=== PATIENT | male | born 1955 | race Caucasian/White ===

== ENCOUNTER 2023-08-03 09:45 | Day surgery (SDC) | payer OTHER, SELFPAY ==
[2023-08-03 10:07] VITALS: BMI 27.2
[2023-08-03 10:13] VITALS: BP 123/66
[2023-08-03 12:17] VITALS: BP 133/69
--- NOTE | 2023-08-03 12:20 | ITS.CL.IMPLP ---
Graphics Software Engineer - Implant Loop
Implant Loop
Procedure Report:
LINQ IMPLANTED MONITOR REMOVAL
Date of Procedure: 08/03/23
Primary Care Provider: Dr Lindsey Holt
PROCEDURES:
1. Removal of implanted loop recorder
INDICATION FOR PROCEDURE:
1. Loop Recorder at end of battery longevity
After informed consent was obtained,'time out' was called and confirmed, the patient was prepped and draped in a sterile fashion.
SEDATION: Local anesthesia only
Lidocaine with epi was used for local anesthesia. An incision was made along the prior incision and the Linq monitor was carefully dissected from the pocket. The pocket was liberally irrigated with antibiotic solution. The pocket was closed in
the typical fashion.
COMPLICATIONS:
None
CONCLUSIONS:
1. Removal of implanted loop recorder.
RECOMMENDATIONS:
In-Office wound check in 7-14 days.
Copy to: 08/03/23
[2023-08-03 12:32] VITALS: BP 120/66
[2023-08-03 12:48] VITALS: BP 127/71
[2023-08-03 12:54] VITALS: BP 120/68
== END 2023-08-03 13:05 | disposition home or self-care (01) ==
LOC: CATH 09:45
PROVIDERS: ATTENDING PHYSICIAN Internal Medicine Cardiovascular Disease; FAMILY PHYSICIAN Family Medicine
DX: Z09 Encounter for follow-up examination after completed treatment for conditions other than malignant neoplasm (principal); I48.0 Paroxysmal atrial fibrillation; R55 Syncope and collapse
CPT/HCPCS: 33286

== ENCOUNTER 2025-07-10 23:32 | Inpatient (IN) | payer MEDICARE, OTHER, SELFPAY ==
[2025-07-10 18:05] VITALS: BP 169/103
[2025-07-10] MEDS: DUONEB 3 ML INH ×2 (18:07→21:05)
[2025-07-10 18:46] LABS: Hematocrit 46.3 % (39.0-52.0); Hemoglobin 15.6 g/dL (13.0-18.0); Mean Corp Hgb Conc. 33.7 g/dL (33.0-37.0); Mean Corpuscular Volume 89.9 fL (80.0-94.0); Nucleated Red Blood Cells % 0 % (-); Platelet Count 171 10^3/uL (130-400); Red Cell Dist. Width 12.6 % (11.5-14.5)
[2025-07-10 19:01] LABS: COVID-19 Antigen Negative (Negative)
[2025-07-10 19:04] LABS: ALT (SGPT) 18 U/L (0-50); AST (SGOT) 24 U/L (17-59); Albumin 4.2 g/dl (3.5-5.0); Alkaline Phosphatase 57 U/L (38-126); Blood Urea Nitrogen 17 mg/dl (9-20); Calcium 8.6 mg/dl (8.4-10.2); Carbon Dioxide 24 mmol/L (22-30); Chloride 102 mmol/L (98-107); Glucose 127 mg/dl (70-99); Potassium 3.8 mmol/L (3.5-5.1); Sodium 134 mmol/L (135-145); Total Protein 6.6 g/dl (6.3-8.2); eGFR > 60.00
--- NOTE | 2025-07-10 21:02 | ED.GENMED ---
History of Present Illness
<Eliazar Paulson PA-C - Last Filed: 07/10/25 22:41>
General
Chief Complaint: Breathing Problem
Source: patient
Time Seen by Provider: 07/10/25 20:40
History of Present Illness
History of Present Illness:
70-year-old male with history of asthma and cardiac arrest secondary to respiratory arrest presents with cough and shortness of breath with trouble breathing over the past 2 days. No fever. He tried to Symbicort at home without relief. No
vomiting. He denies chest pain. No other complaints at this time
Past History
<Eliazar Paulson PA-C - Last Filed: 07/10/25 22:41>
Past History
ED Past Medical History: PA
Phy Exam
<Eliazar Paulson PA-C - Last Filed: 07/10/25 22:41>
Physical Exam
Physical Exam:
General: Well-appearing male with slight increased work of breathing HEENT: Normal cephalic atraumatic neck is supple no trismus or drooling no stridor
Heart: Irregular and occasionally tachycardic
Lungs: Wheeze on the right
Extremities no cyanosis or edema
Skin warm no rash
Scores
<Eliazar Paulson PA-C - Last Filed: 07/10/25 22:41>
Heart Failure Risk
Heart Failure Risk Score: Not Applicable
Sepsis
<Eliazar Paulson PA-C - Last Filed: 07/10/25 22:41>
Sepsis Screening
Sepsis Assessment: Sepsis Ruled Out
Sepsis Screen
Sepsis Screen: Sepsis Ruled Out
Date: 07/10/25
Time: 22:41
Course
<Eliazar Paulson PA-C - Last Filed: 07/10/25 22:41>
Orders/Labs/Results
Orders:
Orders
07/10/25 18:03
Ipratropium/Albuterol Sulfate [Duoneb] 3 ml .ROUTE .STK-MED ONE
07/10/25 18:06
Ipratropium/Albuterol Sulfate [Duoneb] 3 ml INH R NOW ONE
07/10/25 18:13
CR Chest - 2 Views Urgent
Comment:
Reason For Exam: respiratory distress
07/10/25 18:33
COVID-19 Antigen Urgent
Source: Nasal Swab
Complete Blood Count/With Diff Urgent
Comprehensive Metabolic Panel Urgent
Influenza A+B Rapid Molecular Urgent
JUDITH Source: Nasal Swab
Specimen Description:
07/10/25 20:55
Electrocardiogram (*1) Urgent
Reason for Study: Shortness of Breath
Cardiac Monitoring- Treatment ONCE
EKG- Treatment ONCE
Ipratropium/Albuterol Sulfate [Duoneb] 3 ml INH R NOW STA
07/10/25 22:05
Apixaban [Eliquis] 5 mg PO NOW STA
Dexamethasone Sod Phosphate [Decadron] 10 mg IV NOW STA
07/10/25 22:22
CefTRIAXone [Rocephin] 1,000 mg IV NOW STA
07/10/25 22:30
Blood Culture Q30M
JUDITH Source: Blood/Venous
Specimen Description:
07/10/25 23:00
Blood Culture Q30M
JUDITH Source: Blood/Venous
Specimen Description:
Abnormal Lab Results
07/10/25
18:33
Absolute Lymphs (auto) 1.0 L 10^3/uL
(1.2-3.4)
Lymphocytes % 14.6 L %
(20.5-51.1)
Eosinophils % 8.1 H %
(0-6)
Sodium 134 L mmol/L
(135-145)
Glucose 127 H mg/dl
(70-99)
07/10/25 18:33
07/10/25 18:33
Vital Signs
Initial and Last Documented VS:
Initial Vital Signs
Pulse Resp BP Pulse Ox
133 28 169/103 87
07/10/25 18:05 07/10/25 18:05 07/10/25 18:05 07/10/25 18:05
Last Documented Vital Signs
Temp Pulse Resp BP Pulse Ox
98.8 F 133 28 169/103 87
07/10/25 18:15 07/10/25 18:05 07/10/25 18:05 07/10/25 18:05 07/10/25 22:25
<Marcelino Teixeira, DO - Last Filed: 07/10/25 22:25>
Orders/Labs/Results
Orders:
Orders
07/10/25 18:03
Ipratropium/Albuterol Sulfate [Duoneb] 3 ml .ROUTE .STK-MED ONE
07/10/25 18:06
Ipratropium/Albuterol Sulfate [Duoneb] 3 ml INH R NOW ONE
07/10/25 18:13
CR Chest - 2 Views Urgent
Comment:
Reason For Exam: respiratory distress
07/10/25 18:33
COVID-19 Antigen Urgent
Source: Nasal Swab
Complete Blood Count/With Diff Urgent
Comprehensive Metabolic Panel Urgent
Influenza A+B Rapid Molecular Urgent
JUDITH Source: Nasal Swab
Specimen Description:
07/10/25 20:55
Electrocardiogram (*1) Urgent
Reason for Study: Shortness of Breath
Cardiac Monitoring- Treatment ONCE
EKG- Treatment ONCE
Ipratropium/Albuterol Sulfate [Duoneb] 3 ml INH R NOW STA
07/10/25 22:05
Apixaban [Eliquis] 5 mg PO NOW STA
Dexamethasone Sod Phosphate [Decadron] 10 mg IV NOW STA
07/10/25 22:22
CefTRIAXone [Rocephin] 1,000 mg IV NOW STA
07/10/25 22:30
Blood Culture Q30M
JUDITH Source: Blood/Venous
Specimen Description:
07/10/25 23:00
Blood Culture Q30M
JUDITH Source: Blood/Venous
Specimen Description:
Abnormal Lab Results
07/10/25
18:33
Absolute Lymphs (auto) 1.0 L 10^3/uL
(1.2-3.4)
Lymphocytes % 14.6 L %
(20.5-51.1)
Eosinophils % 8.1 H %
(0-6)
Sodium 134 L mmol/L
(135-145)
Glucose 127 H mg/dl
(70-99)
07/10/25 18:33
07/10/25 18:33
Vital Signs
Initial and Last Documented VS:
Initial Vital Signs
Pulse Resp BP Pulse Ox
133 28 169/103 87
07/10/25 18:05 07/10/25 18:05 07/10/25 18:05 07/10/25 18:05
Last Documented Vital Signs
Temp Pulse Resp BP Pulse Ox
98.8 F 133 28 169/103 87
07/10/25 18:15 07/10/25 18:05 07/10/25 18:05 07/10/25 18:05 07/10/25 22:25
Jesusitalt;Eliazar Paulson PA-C - Last Filed: 07/10/25 22:41>
MDM/Problems Addressed
Differential Diagnosis Includes:
Patient here with difficulty breathing history of asthma and cardiac arrest secondary to respiratory arrest. Consider asthma exacerbation versus bronchitis versus pneumonia versus COVID or flu or PE
He received a DuoNeb in triage and is feeling better. Still with slight increased work of breathing. Will try another DuoNeb. Chest x-ray pending test for COVID and flu
<Eliazar Paulson PA-C - Last Filed: 07/10/25 22:41>
*Pulse Oximetry
SaO2: 97
Oxygen Mode of Delivery: Room air
<Marcelino Teixeira DO - Last Filed: 07/10/25 22:25>
*Radiology
Radiology exam reviewed: radiology read reviewed
*Pulse Oximetry
SaO2: 87
Patient hypoxic: yes
*Carton Forming Machine Tender Interpretation
Rate: normal
Interpretation: normal
Heart Rate: 78
Rhythm: sinus
*Critical Care Note
Total Time (30-74mins, 75-104mins- exclusive of procedures): 20
<Eliazar Paulson PA-C - Last Filed: 07/10/25 22:41>
Update Note
Update Note:
Further questioning, patient states he travels quite frequently by plane. EKG formally reviewed and demonstrates rapid atrial fibrillation heart rate in the 150s. PE study ordered.
Upon further questioning, the patient has an anaphylactic reaction to IV dye. Risks and benefits of the CT PE study were discussed. At this point given significant reaction history we will hold off on PE study. We will start anticoagulation
either way secondary to the A-fib. Eliquis was ordered. Will cover with antibiotics for the pneumonia on the x-ray. Discussed with emergency room attending saw the patient as well. Will admit to hospital for shortness of breath, pneumonia, rapid
atrial fibrillation which is new
ED Attending Note
<Eliazar Paulson PA-C - Last Filed: 07/10/25 22:41>
-
Portions of this chart may have been created with voice recognition software.� Occasional wrong word or��sound alike� substitutions may have occurred due to the inherent limitations of voice recognition software.
<Marcelino Teixeira, DO - Last Filed: 07/10/25 22:25>
ED Attending Note
Patient seen and examined by attending physician: Yes
I performed the substantive portion of visit, reviewed & personally made and approve the management plan that is documented in note by myself or KAREN.: Yes
ED Attending Note:
Seen with PA examined independently prior records reviewed 70-year-old male chronic lung disease status postcardiac arrest a few years ago thought to be due to to respiratory causes, presents with cough shortness of breath low sats feeling better
after nebs although had an episode of rapid A-fib, chest x-ray noted looks like pneumonia versus atelectasis, no leukocytosis, had considered ordering a CT of the chest apparently he has had issues with IV contrast has shortness of breath, at this
point would be prudent to admit him to the hospital we will start him on anticoagulation antibiotics oxygen consideration for specialty consultation
Discharge Plan
Departure
Patient Disposition: Admit
Date of Disposition: 07/10/25
Time of Disposition: 22:41
Presentation/result/management discussed w/ accepting MD/DO: Hospitalist
Discharge Problem:
Atrial fibrillation with RVR, Shortness of breath
Prescriptions:
No Action
budesonide-formoterol [Symbicort] 80-4.5 mcg/actuation HFA aerosol inhaler
1 puff inhalation QPM
multivitamin Tablet
1 tab PO Q48H
acetylcysteine 600 mg Capsule
600 mg PO DAILY
Referrals:
Natty Russell MD [Family Provider, Pulmonary Medicine]
Interventions
Interventions:
*General Assessment Last Done: 07/10/25 18:05
*Neglect/Abuse Screening Last Done: 07/10/25 18:05
[facility] Risk Assessment Tool Last Done: 07/10/25 21:29
*Risk Screen - Suicide (C-SSRS) Last Done: 07/10/25 18:05
ED- Cardiac Assessment Last Done: 07/10/25 21:29
ED- Pulmonary Assessment Last Done: 07/10/25 21:29
Discharge Date and Time
Print Language: FAROESE
[2025-07-10 22:00] VITALS: BP 130/68
[2025-07-10] MEDS: ELIQUIS 5 MG PO (22:29)
[2025-07-10] MEDS: DECADRON 10 MG IV (22:31)
--- NOTE | 2025-07-10 22:48 | W.PN.UPDATE ---
Update Note
Progress Note Update
This note serves as an addendum to the H&P by lunchroom mother Mercedez WHEELER
HPI
70M
PMHX: HX asthma , HX VDRF, Cardiac arrest due to respiratory arrest
- pw cough and shortness of breath with trouble breathing over the past 2 days.
- No fever.
- tried to Symbicort at home without relief.
- No vomiting.
- He denies chest pain.
- worsening trouble breathing since yesterday. I
- noted to be in and out of rapid a-fib here.
- Not anticoagulated.
- HX anaphylaxis to IV dye.
CXR
RML PNA
ER started ABx and PO eliquis for the AFib
Relevant VS
Temp Pulse Resp BP Pulse Ox
98.8 F 133 28 169/103 87
07/10/25 18:15 07/10/25 18:05 07/10/25 18:05 07/10/25 18:05 07/10/25 22:25
PE
Gen: Not toxic
HEENT: anicteric
Neck: supple
Lungs: tight AE with hi pitched exp wheeze both post davila
Cor: tachycardiac
Abdomen:�soft abdomen
DRIVER EXAMINER: AAO3 NFND
MS: No edema
Psych: Nl mood and affect
Relevant Data
07/10/25
18:33
WBC 7.1
Hgb 15.6
Plt Count 171
Sodium 134 L
Creatinine 0.8
eGFR > 60.00
SARS-CoV-2 Antigen Negative
NEG Flu A & B
CXR:
1. Large dense airspace consolidation in the right middle lobe.
Diagnostic possibilities are (1) SEVERE RIGHT MIDDLE LOBE PNEUMONIA or ATELECTASIS secondary to mucous plugging (probably most likely given acute onset of symptoms) or (2) right middle lobe lung cancer (a consideration if symptoms are more chronic).
2. Mild airspace opacity in the basilar segments of the lower lobes.
3. Mild elevation of the left hemidiaphragm.
EKG report
ATRIAL FIBRILLATION WITH RAPID VENTRICULAR RESPONSE
INFERIOR-POSTERIOR INFARCT , AGE UNDETERMINED
ABNORMAL ECG
WHEN COMPARED WITH ECG OF 15-May-2022 04:59,
SIGNIFICANT CHANGES HAVE OCCURRED
Last hospitalist admission: 05/14/22 - 05/20/22
DX: Post cardio-respiratory arrest/severe asthma exacerbation
ASSESSMENT & PLAN
Pending Rx reconciliation
Moderately severe asthma with flare
acute hypoxic RI requiring 2 L NC O2 support
HX Resp arrest and VDRF
HX Severe asthma exacerbation complicated by out of f hospital cardiorespiratory arrest with ROSC
HX Chronic rhinitis
Frequent travel
- IV Decadron 4mg q8h
- DuoNeb qii
- O2 to keep Pox > 94
- Pul consult
PNA @ RML presumed CAP
Acute hypoxic RI
NEG Covid . NEG Flu
- afebrile , Nl WCC
- associated dyspnea ab nd cough
- IV CFTZ and PO Doxy
- O2 to keep PO > 93
- FU T, WCC
In and out of A Fib suspect due to primary Pul patholgy
HX Prx AF
- c/w Eliquis
- CBC Card consult
DVT Px: Eliquis
Code: Full code
IP TLM
[2025-07-10 23:00] VITALS: BP 130/76
--- NOTE | 2025-07-10 23:11 | HPS.HSE ---
Family Physician
-
Family Physician: Natty Russell
Chief Complaint
-
Shortness of Breath
History of Present Illness
Patient is a 70 y/o male past medical history of asthma who presents with shortness of breath. Patient reports slight dry cough recently. Yesterday he attended a dinner constitution party where the host had set up various scented candles. During the dinner
constitution party patient reports his breathing got significantly worse. Upon returning home he took his usual Symbicort inhaler and he was able to sleep. However over the coarse of the day today his breathing continued to worsening prompting him to come to
the emergency department for evaluation. He denies fevers, sweats of chills. He denies chest pain or lower extremity edema. Patient reports following the nebulizer treatment his breathing is improving.
Medical History
Past Medical History
Past Medical History: Reports Other
Additional Past Medical History:
Severe Persistent Asthma
Past Surgical History: Reports Other
Additional Past Surgical History:
Left Total Hip Replacement
Social History
Tobacco: Non-smoker
Alcohol: None
Drug: None
Family History
Family History: Not pertinent
Allergies / Home Medications
Allergies reflects when Allergies were last updated in [employer].
Home Medications with original date entered in [employer]
Allergy/Medication List:
Allergies
Allergy/AdvReac Type Severity Reaction Status Date / Time
Iodinated Contrast Media Allergy Anaphylaxis Verified 07/10/25 23:05
Home Medications
albuterol sulfate 90 mcg/actuation aerosol inhaler 1 puff inhalation Q4HPRN PRN shortness of breath 07/10/25
budesonide-formoterol HFA 160 mcg-4.5 mcg/actuation aerosol inhaler (Symbicort) 1 puff inhalation HS 07/10/25
Review of Systems
-
A 12 point ROS was completed and negative except as noted: Yes
Constitutional: Denies Fever
Respiratory: Reports See HPI
Cardiac: Denies Chest Pain
Physical Exam
Vital Signs
Vital Signs
Temp Pulse Resp BP Pulse Ox
98.8 F 82 17 130/68 97
07/10/25 18:15 07/10/25 23:00 07/10/25 23:00 07/10/25 22:00 07/10/25 23:00
Physical Exam
General: Comfortable and Conversant
HEENT: Anicteric, Moist mucous membranes and Oxygen (Nasal Cannula)
Respiratory: Wheezes (Particularly on the Right)
Cardiac: S1/S2 and Regular Rhythm
GI: Soft and Non Tender
Rectal: Deferred by Provider
Musculoskeletal: No Clubbing and No Cyanosis
Skin: Warm and Dry
Neuro: Awake, Alert, Oriented and Nonfocal/grossly intact
Psych: Calm
Laboratory Results
-
07/10/25 18:33
07/10/25 18:33
Laboratory Results
Total Bilirubin 0.7 mg/dl (0.2-1.3) 07/10/25 18:33
AST 24 U/L (17-59) 07/10/25 18:33
ALT 18 U/L (0-50) 07/10/25 18:33
Alkaline Phosphatase 57 U/L (38-126) 07/10/25 18:33
Chest X-Ray:
1. Large dense airspace consolidation in the right middle lobe. Diagnostic possibilities are (1) SEVERE RIGHT MIDDLE LOBE PNEUMONIA or ATELECTASIS secondary to mucous plugging (probably most likely given acute onset of symptoms) or (2) right
middle lobe lung cancer (a consideration if symptoms are more chronic).
2. Mild airspace opacity in the basilar segments of the lower lobes.
3. Mild elevation of the left hemidiaphragm.
Data Reviewed
-
Diagnostic Radiology: Report Reviewed by me
Lab Data: Labs Reviewed by me
Impression/Plan
-
Acute Hypoxic Respiratory Insufficiency secondary to Acute Asthma Exacerbation
-Continue supplemental oxygen
Acute Asthma Exacerbation
-Consult Pulmonary
-Continue Pulmicort Neb in place of Symbicort
-Continue DuoNeb QID and PRN
-CXR raises concern for possible right middle lobe pneumonia vs atelectasis secondary to mucus plugging (possibly pulmonary infarct as patient frequently travels)
-Continue ceftriaxone and doxycycline - Check procalcitonin and if negative plan to stop antibiotics
-Patient unable to PE study due to severe IV dye allergy - Check peripheral vascular ultrasound - Patient to be started on Eliquis for A-Fib (see below)
Paroxysmal Atrial Fibrillation
-Patient spontaneously converted to NSR in ED
-Patient had prior episode of A-Fib related to respiratory distress
-Consult Cardiology
-Start Eliquis 5mg BID for anticoagulation
-Monitor on Telemetry
DVT proph: Eliquis
Code Status: Full Code
[2025-07-10] MEDS: ROCEPHIN 1000 MG IV (23:19)
[2025-07-10 23:53] LABS: Procalcitonin < 0.05 ng/ml (0.0-0.25)
[2025-07-11] VITALS (9 sets, daily range): BP systolic 107–117; BP diastolic 52–65; BMI 24.1; BMI 26.5
[2025-07-11] MEDS: PULMICORT 0.5 MG INH ×2 (07:23→19:15)
[2025-07-11] MEDS: DUONEB 3 ML INH ×4 (07:23→19:15)
--- NOTE | 2025-07-11 07:51 | W.PN.HOSP.TC ---
Today's Communication/Plan
-
monitor overnight.
Assessment / Plan
Assessment / Plan
Impression:
Patient is a 70 y/o male past medical history of asthma who presents with shortness of breath. Patient reports slight dry cough recently. Yesterday he attended a dinner green party where the host had set up various scented candles. During the dinner
green party patient reports his breathing got significantly worse. Upon returning home he took his usual Symbicort inhaler and he was able to sleep. However over the coarse of the day today his breathing continued to worsening prompting him to come to
the emergency department for evaluation. He denies fevers, sweats of chills. He denies chest pain or lower extremity edema. Patient reports following the nebulizer treatment his breathing is improving.
He noted to be in and out of atrial fibrillation.
Assessment/plan:
Acute Hypoxic Respiratory Insufficiency secondary to Acute Asthma Exacerbation
Continue supplemental oxygen
Current on room air
Acute Asthma Exacerbation
Consulted Pulmonary
Continue Pulmicort nebulizer in place of Symbicort
Continue DuoNeb QID and PRN
Chest X-ray shows:
1. Large dense airspace consolidation in the right middle lobe. Diagnostic possibilities are (1) SEVERE RIGHT MIDDLE LOBE PNEUMONIA or ATELECTASIS secondary to mucous plugging (probably most likely given acute onset of symptoms) or (2) right
middle lobe lung cancer (a consideration if symptoms are more chronic).
2. Mild airspace opacity in the basilar segments of the lower lobes.
3. Mild elevation of the left hemidiaphragm
Continue ceftriaxone and doxycycline
negative procalcitonin.
Unable to perform PE study due to severe IV dye allergy-will obtain CT chest without contrast
peripheral vascular ultrasound negative for DVT
Started on Eliquis for atrial fibrillation, seen by cardiology, low risk, will start baby aspirin.
Concern of endobronchial mass
CT scan shows:
Medial segment right middle lobe volume loss/atelectasis, evaluation limited without intravenous contrast. Cannot exclude endobronchial lesion and cannot exclude central and/or right hilar mass.
Few scattered indeterminate subcentimeter mediastinal lymph nodes.
Subcentimeter low-attenuation right lobe hepatic lesion too small to characterize.
Pulmonology consulted.
Plan for follow-up as outpatient and consider bronchoscopy.
Paroxysmal Atrial Fibrillation
Patient spontaneously converted to NSR in ED
Prior episode of A-Fib related to respiratory distress
Consulted Cardiology
Start Eliquis 5 mg BID for anticoagulation, low [id number] score , will be discharged on baby aspirin
Monitor on telemetry
CODE STATUS: Full code
DVT prophylaxis: Eliquis (dc'd)
Diet: Regular diet
Family communication: discussed with at bedside.
Disposition: monitor overnight.
Total time spent on today's encounter was 55 minutes which included time spent in counseling the patient/family regarding diagnosis and treatment plan as listed above, goals of care, and symptom management. Case was discussed with nursing staff,
specialists, and care coordinators/case management. All labs and imaging personally reviewed by me. Remainder the time spent in detailed review of previous records, lab data, imaging, and other medical provider documentation.
Part of this note was created using voice recognition system. Occasional wrong word or �sound alike� substitutions may have inadvertently occurred due to the inherent limitations of voice recognition software. If noted kindly bring it to my
attention for correction.
Anticipated Discharge: Within 24 hours
Subjective/Interval History
-
Date of Service: July 11, 2025
Patient seen and examined at bedside, denies any chest pain , shortness of breath Improved, no abdominal pain, no nausea, no vomiting, no diarrhea or constipation.
Seen by both cardiology and pulm.
Objective Data
-
Labs:
Laboratory Results
07/11/25
07:18
WBC Pending
Hgb Pending
Hct Pending
Plt Count Pending
Sodium Pending
Potassium Pending
Chloride Pending
Carbon Dioxide Pending
BUN Pending
Creatinine Pending
Glucose Pending
Calcium Pending
Vital Signs:
Vital Signs
Temp Pulse Resp BP Pulse Ox
98.5 F 76 18 110/63 97
07/11/25 01:32 07/11/25 07:28 07/11/25 07:28 07/11/25 01:32 07/11/25 07:28
Physical Exam
-
General: Well Developed, Well Nourished, No Apparent Distress and Comfortable
HEENT: Normocephalic, Atraumatic, Moist Mucous Membranes, No Ptosis, PERRLA and Nose Appears Normal
Respiratory: Wheezes, Rales and Non Labored Respirations
Cardiac: Regular Rhythm and S1/S2
Breast: Deferred by me
GI: Soft, Nontender, Nondistended and Normal Bowel Sounds
Genito-urinary: No Costovertebral Tender
Musculoskeletal: No Clubbing, No Cyanosis and No Edema
Skin: Warm
Neuro: Awake, Alert, Oriented, AO x 3 and No Motor Deficits
Psych: Calm
Data Reviewed
-
Diagnostic Radiology: Image personally visualized and interpreted and Report Reviewed by me
CT Scan: Image personally visualized and interpreted and Report Reviewed by me
Ultrasound: Image personally visualized and interpreted and Report Reviewed by me
MRI: Image personally visualized and interpreted and Report Reviewed by me
Medical Tests (Nuc Med, Echo etc): Image personally visualized and interpreted and Report Reviewed by me
Labs: Labs Reviewed by me
Old Records: Reviewed
[2025-07-11 07:59] LABS: Hematocrit 39.4 % (39.0-52.0); Hemoglobin 13.6 g/dL (13.0-18.0); Mean Corp Hgb Conc. 34.5 g/dL (33.0-37.0); Mean Corpuscular Volume 88.1 fL (80.0-94.0); Platelet Count 175 10^3/uL (130-400); Red Cell Dist. Width 12.8 % (11.5-14.5)
[2025-07-11] MEDS: VIBRAMYCIN 100 MG PO ×2 (08:06→19:49)
[2025-07-11] MEDS: DECADRON 4 MG IV ×3 (08:06→23:34)
[2025-07-11] MEDS: ELIQUIS 5 MG PO (08:06)
[2025-07-11 08:28] LABS: Blood Urea Nitrogen 13 mg/dl (9-20); Calcium 8.4 mg/dl (8.4-10.2); Carbon Dioxide 22 mmol/L (22-30); Chloride 105 mmol/L (98-107); Estimated Creatinine Clearance 97 ml/min; Glucose 155 mg/dl (70-99); Potassium 4.3 mmol/L (3.5-5.1); Sodium 135 mmol/L (135-145); eGFR > 60.00
--- NOTE | 2025-07-11 08:46 | CON.CAR ---
Addendum entered and electronically signed by Ishan Cerda DO 07/11/25 13:59:
I saw and examined the patient.
The Polygraph Technician's note was reviewed and I agree with the note.
Comment:
Plan:
AFib with spontaneous conversion to sinus
He has low CHADSVASc score and is not interested in oral anticoagulation
He declines rate control medication.
Cont supportive care
Check echo and if stable, will sign off and see in follow up
Discussed with at bedside.
Will arrange for cardiology follow-up
HPI: Patient came to the ER yesterday with SOB and was admitted with acute hypoxic respiratory insufficiency in the setting of asthma and cardiology is now consulted for evidence of rapid A-fib. Patient has a history of reactive airway disease and
previously had aspiration respiratory arrest that was treated at [facility] in the summer 2021. More recently he had an episode of wmm-ks-beficouf respiratory and cardiac arrest 04/2022 at which time the patient's performed CPR and
he underwent TTM at the hospital, he had a full recovery. Patient was initially diagnosed with A-fib in the setting of COVID 07/09/2021. It is unknown if patient had recurrent atrial arrhythmia during his event in [place] in the summer 2021, but
he was noted to have rapid A-fib during his icu-pv-mgmbzoqh respiratory and cardiac arrest 04/2022. Cardiology followed along at that time and patient eventually spontaneously converted to SR and later had a Linq monitor placed from 05/26/2022 until
08/03/2023 and during that time there was no evidence of recurrent atrial arrhythmia. Patient has historically declined addition of beta-cynthia therapy. Patient is not chronically anticoagulated due to the low burden of A-fib and by his choice.
Patient reports that his breathing seemed to be worse following a recent outpatient pulmonology visit with spirometry in the office, that was about 2 to 3 weeks ago. They were then at a friend's house for a dinner libertarian over the weekend and
the friend had scented candles lit around her home and patient seemed to do worse after that with wheezing and feeling like he was congested. Patient had minimal improvement was Symbicort at home and came to the ER for evaluation where he was found
to be in rapid A-fib, patient feels the A-fib started just a couple of hours prior to ER arrival and he felt like his heart was racing. Symptoms improved with spontaneous conversion to SR.
Original Note:
Consultation
Consultation Request
Date/Time Consultation Requested: 07/11/2025 at 0139
Date/Time Consultation Performed: 07/11/2025 at 0918
Requesting Provider: Dr. Alva Joya
Performing Provider: Dr. Cerda
Reason for Consultation: Paroxysmal A-fib
Medical History
-
History of Present Illness:
Patient came to the ER yesterday with SOB and was admitted with acute hypoxic respiratory insufficiency in the setting of asthma and cardiology is now consulted for evidence of rapid A-fib. Patient has a history of reactive airway disease and
previously had aspiration respiratory arrest that was treated at [facility] in the summer 2021. More recently he had an episode of dkc-nu-zfogzcoe respiratory and cardiac arrest 04/2022 at which time the patient's performed CPR and
he underwent TTM at the hospital, he had a full recovery. Patient was initially diagnosed with A-fib in the setting of COVID 07/09/2021. It is unknown if patient had recurrent atrial arrhythmia during his event in [place] in the summer 2021, but
he was noted to have rapid A-fib during his zhp-be-apytufox respiratory and cardiac arrest 04/2022. Cardiology followed along at that time and patient eventually spontaneously converted to SR and later had a Linq monitor placed from 05/26/2022 until
08/03/2023 and during that time there was no evidence of recurrent atrial arrhythmia. Patient has historically declined addition of beta-cynthia therapy. Patient is not chronically anticoagulated due to the low burden of A-fib and by his choice.
Patient reports that his breathing seemed to be worse following a recent outpatient pulmonology visit with spirometry in the office, that was about 2 to 3 weeks ago. They were then at a friend's house for a dinner libertarian over the weekend and
the friend had scented candles lit around her home and patient seemed to do worse after that with wheezing and feeling like he was congested. Patient had minimal improvement was Symbicort at home and came to the ER for evaluation where he was found
to be in rapid A-fib, patient feels the A-fib started just a couple of hours prior to ER arrival and he felt like his heart was racing. Symptoms improved with spontaneous conversion to SR.
PMH:
Paroxysmal A-fib
Not chronically anticoagulated due to low burden of atrial arrhythmia and patient decision
Previous Linq monitor in place from 05/26/2022 until 08/03/2023
No evidence of atrial arrhythmia during monitoring.
h/o Out of hospital respiratory and cardiac arrest 04/2022
h/o admission to [facility] for aspiration and respiratory arrest Summer 2021
h/o admission to [facility] for possible syncope, newly diagnosed paroxysmal Afib and COVID 07/09/21
Past Medical History
Past Medical History: Other (in HPI)
Past Surgical History: Cardiac (Linq monitor in place 05/26/2022 until 08/03/2023) and Orthopedic ([facility])
Social History
Tobacco: Non-Smoker
Alcohol: None
Drug: None
Personal:
Living: With Family
Family History
Family History: Reviewed & Not Pertinent (Patient denies family history of sudden cardiac )
Allergies / Home Medications
Allergy/AdvReac Type Severity Reaction Status Date / Time
Iodinated Contrast Media Allergy Anaphylaxis Verified 07/10/25 23:05
�Medication �Instructions �Recorded �Confirmed �Type
albuterol sulfate 90 mcg/actuation 1 puff inhalation Q4HPRN PRN 07/10/25 07/10/25 History
aerosol inhaler shortness of breath
budesonide-formoterol HFA 160 1 puff inhalation HS 07/10/25 07/10/25 History
mcg-4.5 mcg/actuation aerosol Lung/Breathing Issues
inhaler (Symbicort)
Review of Systems
-
History Source: Patient and Family ( sitting at bedside helping with HPI)
All other systems: Negative unless noted
Physical Exam
Vital Signs
Temp Pulse Resp BP Pulse Ox
97.4 F 76 18 107/65 97
07/11/25 07:25 07/11/25 07:28 07/11/25 07:28 07/11/25 07:25 07/11/25 07:28
GEN: NAD. AAO x 3
HEENT: MMM
LUNGS: RA. Clear anterolaterally without wheeze or rales
CV: SR on telemetry. Reg, S1/S2, no appreciable murmur
ABD: ND
EXT: No clubbing, cyanosis, lesions or edema B/L
NEURO: No focal or lateralizing weakness
SKIN: Warm dry and pink no rash
Lab Results
07/11/25 07:18
07/11/25 07:18
Impression / Plan
-
Hospitality Associate: None prior to admission, initially seen by Dr. Padilla
Impression:
Admitted with acute hypoxic respiratory insufficiency in the setting of acute asthma exacerbation and rapid A-fib 07/10/2025
Acute hypoxic respiratory insufficiency
Acute asthma exacerbation
A-fib with RVR spontaneously converting to SR 07/10/2025
Paroxysmal A-fib
Not chronically anticoagulated due to low burden of atrial arrhythmia and patient decision
Previous Linq monitor in place from 05/26/2022 until 08/03/2023
No evidence of atrial arrhythmia during monitoring.
h/o Out of hospital respiratory and cardiac arrest 04/2022
h/o admission to [facility] for aspiration and respiratory arrest Summer 2021
h/o admission to [facility] for possible syncope, newly diagnosed paroxysmal Afib and COVID 07/09/21
Echo 08/02/21: EF 60-65%, trace MR, mild aortic insufficiency, trace TR with PAP 20 mmHg
Echo 05/15/22:�Normal left ventricular size and systolic function. No regional wall motion�abnormalities are seen. LV ejection fraction is 60-65% by Calvo's method of�discs. Mild concentric left ventricular hypertrophy. Normal diastolic function.
The aortic root is mildly dilated-3.8 cm in ascending aorta.�Since echocardiogram July 2021, there is no significant change.
Echo 07/11/2025: Study pending
Plan:
-Patient came to the ER yesterday with SOB and was admitted with acute hypoxic respiratory insufficiency in the setting of asthma and cardiology is now consulted for evidence of rapid A-fib. Patient has a history of reactive airway disease and
previously had aspiration respiratory arrest that was treated at [facility] in the summer 2021. More recently he had an episode of ljp-zo-gxgxbecw respiratory and cardiac arrest 04/2022 at which time the patient's performed CPR and
he underwent TTM at the hospital, he had a full recovery. Patient was initially diagnosed with A-fib in the setting of COVID 07/09/2021. It is unknown if patient had recurrent atrial arrhythmia during his event in [place] in the summer 2021, but
he was noted to have rapid A-fib during his jru-rx-yscwnddo respiratory and cardiac arrest 04/2022. Cardiology followed along at that time and patient eventually spontaneously converted to SR and later had a Linq monitor placed from 05/26/2022 until
08/03/2023 and during that time there was no evidence of recurrent atrial arrhythmia. Patient has historically declined addition of beta-cynthia therapy. Patient is not chronically anticoagulated due to the low burden of A-fib and by his choice.
Patient reports that his breathing seemed to be worse following a recent outpatient pulmonology visit with spirometry in the office, that was about 2 to 3 weeks ago. They were then at a friend's house for a dinner libertarian over the weekend and
the friend had scented candles lit around her home and patient seemed to do worse after that with wheezing and feeling like he was congested. Patient had minimal improvement was Symbicort at home and came to the ER for evaluation where he was found
to be in rapid A-fib, patient feels the A-fib started just a couple of hours prior to ER arrival and he felt like his heart was racing. Symptoms improved with spontaneous conversion to SR.
-ECG on admission reviewed by me shows A-fib with RVR with nonspecific ST changes anterolaterally that improve once he is back in SR on repeat ECG that was also reviewed by me from 07/11/2025.
-Patient denies any chest pain. No troponin levels checked.
-Check echo, ordered by me
-Telemetry reviewed by me shows that the patient is maintaining SR following spontaneous conversion in the ER on 07/10/2025
-Patient has a known history of paroxysmal A-fib with an initial diagnosis being made in the setting of COVID 07/09/2021 and it was seen again in the setting of an oqt-wh-qutcpgld respiratory and cardiac arrest 04/2022. While patient had a Linq
monitor in place from 05/26/2022 until 08/03/2023 there was no recurrence of atrial arrhythmia. His atrial arrhythmia seems to be linked with exacerbations of his reactive airway disease.
-Patient is not interested in beta-cynthia therapy and will continue to focus on avoiding reactive airway disease exacerbations.
-Patient is not interested in OAC. [id number] is only 1 based on age.
-Will arrange for cardiology follow-up
--- NOTE | 2025-07-11 10:07 | CON.PUL ---
Consultation
Consultation Request
Date/Time Consultation Requested: 07/11/2025-8 AM
Date/Time Consultation Performed: 07/11/2025-8:30 AM
Requesting Provider: Hospitalist
Performing Provider: Dr. Naranjo
Reason for Consultation: Shortness of breath
Medical History
-
Chief Complaint: Shortness of breath
History of Present Illness:
70-year-old non-smoking male with a history of asthma followed by Dr. Russell presented with increasing shortness of breath and a dry nonproductive cough found to have an abnormal chest z-hnc-hixppzpiq consulted for shortness of breath, wheezing,
abnormal chest x-ray 07/11/2025. Patient states he has not had any fevers, chills or night sweats. He did have increasing wheezing. He was recently exposed to 'scented candles'. He denies any chest pain, chest tightness, hemoptysis,
unintentional weight loss, abdominal pain, leg swelling or focal weakness.
Past Medical History
Past Medical History: None (Asthma-severe persistent-maintained on Symbicort and albuterol, follows Dr Russell. PAF. Sudden cardiac arrest status post successful resuscitation-04/2022. Chronic rhinitis.)
Social History
Tobacco: Non-smoker
Alcohol: None
Drug: None
Personal:
Living: With Family
Occupational Exposures: No known asbestos exposure
Environmental Exposures: no known tuberculosis exposure
Family History
Family History: Reviewed & Not Pertinent
Allergies / Home Medications
Allergies
Allergy/AdvReac Type Severity Reaction Status Date / Time
Iodinated Contrast Media Allergy Anaphylaxis Verified 07/10/25 23:05
Home Medications
�Medication �Instructions �Recorded �Confirmed �Last Taken �Type
albuterol sulfate 90 mcg/actuation 1 puff inhalation Q4HPRN PRN 07/10/25 07/10/25 Unknown History
aerosol inhaler shortness of breath
budesonide-formoterol HFA 160 1 puff inhalation HS 07/10/25 07/10/25 Unknown History
mcg-4.5 mcg/actuation aerosol Lung/Breathing Issues
inhaler (Symbicort)
Review of Systems
-
Unable to Obtain full review of systems at this time due to: Other ( per HPI)
Vitals / Labs / Diagnostic Testing
Vital Signs
Temp Pulse Resp BP Pulse Ox
97.4 F 76 18 107/65 97
07/11/25 07:25 07/11/25 07:28 07/11/25 07:28 07/11/25 07:25 07/11/25 07:28
Lab Data
07/11/25 07:18
07/11/25 07:18
Microbiology
07/10/25 18:33 Nasal Swab Influenza Types A & B ([facility]AG) - Final
Negative for Influenza A & B, NAAT
Negative results must be combined with clinical observations
and patient history.
Nucleic Acid Amplification test (NAAT)performed on the
[employer]um[employer] platform.
Diagnostic Testing:
Physical Exam
-
Exam:
Well-nourished and well-developed in no apparent distress
HEENT-atraumatic, normocephalic
Neck-supple, no JVD, no bruit
Heart-regular rate and rhythm-no murmurs, rubs or gallops
Chest with diminished breath sounds, mildly prolonged expiratory time, forced expiratory wheezes and no crackles
Back-no tenderness
Abdomen-soft, nontender, nondistended, no hepatosplenomegaly
Extremities-no cyanosis, clubbing, edema and good peripheral pulses
Integument-intact, no rashes, lesions or ecchymosis
Neurology-alert and oriented, nonfocal motor and sensory exam
Assessment
-
70-year-old non-smoking male with a history of asthma followed by Dr. Russell presented with increasing shortness of breath and a dry nonproductive cough found to have an abnormal chest m-yko-ehmhmegqc consulted for shortness of breath, wheezing,
abnormal chest x-ray 07/11/2025.
Asthma-severe persistent with acute exacerbation
Abnormal chest x-ray-large dense airspace consolidation right middle lobe
PAF
Leukopenia
Eosinophilia-600
Mild hyperglycemia
Conditions present prior to admission:
Asthma-severe persistent-maintained on Symbicort and albuterol, follows Dr Russell.
Eosinophilia
Seasonal allergic rhinitis
PAF.
Sudden cardiac arrest status post successful resuscitation-04/2022.
Chronic rhinitis.
Ankle surgery. Left hip surgery. Right shoulder scope.-Workup for hypereosinophilic syndrome negative
Plan
Respiratory decompensation consistent with asthma exacerbation-no obvious infection noted is a trigger-was exposed to 'scented candles' and may have assisted in the exacerbation
Office records were reviewed and radiographs, lower extremity ultrasound, CTs of the chest, echocardiogram, spirometry, and pulmonary function tests are summarized below
Supplemental oxygen as needed
DuoNebs
Budesonide nebulizers
Decadron 4 mg IV every [address] chest summarized below-Will need outpatient follow-up and consideration towards endobronchial inspection
Procalcitonin negative
Rocephin and doxycycline initiated to cover community-acquired sources-finite course-not convinced patient has active bacterial community-acquired pneumonia
DVT prophylaxis-on Eliquis
Nutrition
Early mobilization
Reviewed with nursing as well as primary team as well as at the bedside 07/11/2025
The patient last saw Dr. Russell 06/21/2025-maintained on Symbicort and albuterol-with significant recurrent eosinophilia consideration towards Biologics such as Nucala, Fasenra or Dupixent will be entertained
Diagnostic data:
Chest x-ray 07/10/2025-large dense airspace consolidation right middle lobe, mild elevation left hemidiaphragm
Lower extremity ultrasound 07/10/2025-no evidence for DVT bilaterally
CT chest 07/11/2025-medial segment right middle lobe volume loss/atelectasis, cannot completely exclude endobronchial lesion and cannot exclude central or right hilar mass, few scattered intermediate 7 cm mediastinal lymph nodes
CT of the chest 07/09/21.negative for central pulmonary embolism. Mild bilateral nonspecific hilar lymphadenopathy. Few scattered bilateral peripheral tiny groundglass opacities are nonspecific. Findings could represent inflammatory infectious
process. Moderate bronchial wall thickening which could represent small airway disease such as bronchitis.
CT of the chest 05/14/22.no filling defects seen within the main pulmonary artery, right main pulmonary artery the left main pulmonary arteries to suggest pulmonary embolism. Remainder of pulmonary artery system bilaterally significantly limited by
beam hardening artifact from the patient's bilateral upper extremities as well as respiratory motion artifact.
Echo 05/15/22: Normal left ventricle size and systolic function. No regional wall motion abnormalities are seen. LVEF of 60-65%. Mild concentric left ventricular hypertrophy. Normal diastolic function. The aortic root is mildly dilated at 3.87 L and
ascending aorta. No significant change from previous.
Purcell with vol 06/21/25: FVC 3.78/70%, FEV1 2.29/58%, ratio 61.� TLC 7.25/89%.Compared to prior study, FEV1 has worsened
PFT 08/13/22: FVC 5.09/96%, FEV1 3.80/96%, ratio 75. TLC 7.73/97%, DLCO 28.92/92%. Normal
6 minute walk test 05/23/22. Room air saturation 96%, heart rate 76 bpm. Patient maintains 96-98% on room air. Heart rate increased to 88 bpm. Dyspnea index year at a 10. He ambulated 1500 feet
Data Reviewed
-
PFT: Report reviewed by me
EKG: Report reviewed by me
Radiology: Image personally visualized and interpreted and Report reviewed by me
CT Scan: Image personally visualized and interpreted and Report reviewed by me
Ultrasound: Report reviewed by me
Medical Tests (Nuc Med, Echo etc): Report reviewed by me
Labs: Labs reviewed by me
Old Records: Reviewed
Total Time Spent with Patient (in minutes): 65
--- NOTE | 2025-07-11 11:43 | CM ---
CM reviewed chart, patient seen bedside with , IA completed.
Patient is a 70 y/o male past medical history of asthma who presents with shortness of breath.
Patient resides with his in a two level home plus basement, two steps to enter.
Patient denies DME, VN/SNF.
PCP Lindsey Evans, Pharmacy [facility] [place], confirms prescription coverage.
Patient denies insecurities at home, confirms will transport home.
CM will continue to follow.
Plan; home no needs anticipated
--- NOTE | 2025-07-11 12:27 | W.CHA2DS2VAS ---
[id number] Score
Score
Age in Years (65=0, 65-74=1, >/=75=2): 65-74
Sex (Female=+1): Male
Congestive Heart Failure History (Yes=+1): No
Hypertension History (Yes=+1): No
Stroke/TIA/Thromboembolism History (Yes=+2): No
Vascular Disease History (Yes=+1): No
Diabetes Mellitus (Yes=+1): No
Score >/=2 is otherwise an anticoagulation candidate: 1
--- NOTE | 2025-07-11 16:52 | PTCARENOTE ---
Assumed care of pt from previous nurse. pt denies pain. pt is on tele running nsr. Pt lungs diminished, wheeze expiratory and coarse left side, diminished right side. 97% on 2L's. Pt call long is within reach, pt rings toi. will cont to monitor.
[2025-07-11] MEDS: STERILE WATER FOR INJECTION 10 ML IV (23:34)
[2025-07-11] MEDS: ROCEPHIN 1000 MG IV (23:34)
[2025-07-12 03:18] VITALS: BP 108/58
[2025-07-12 07:25] VITALS: BP 119/68
[2025-07-12] MEDS: DUONEB 3 ML INH ×2 (07:28→10:40)
[2025-07-12] MEDS: PULMICORT 0.5 MG INH (07:28)
[2025-07-12 08:52] LABS: Hematocrit 39.6 % (39.0-52.0); Hemoglobin 13.8 g/dL (13.0-18.0); Mean Corp Hgb Conc. 34.8 g/dL (33.0-37.0); Mean Corpuscular Volume 86.8 fL (80.0-94.0); Platelet Count 177 10^3/uL (130-400); Red Cell Dist. Width 13.1 % (11.5-14.5)
[2025-07-12] MEDS: DECADRON 4 MG IV (09:23)
[2025-07-12] MEDS: VIBRAMYCIN 100 MG PO (09:24)
[2025-07-12 09:32] LABS: Blood Urea Nitrogen 15 mg/dl (9-20); Calcium 8.8 mg/dl (8.4-10.2); Carbon Dioxide 21 mmol/L (22-30); Chloride 105 mmol/L (98-107); Estimated Creatinine Clearance 111 ml/min; Glucose 128 mg/dl (70-99); Sodium 135 mmol/L (135-145); eGFR > 60.00
--- NOTE | 2025-07-12 09:52 | W.PN.PUL3 ---
Today's Communication / Plan
-
Decadron, with prednisone taper upon discharge
Resume Symbicort upon discharge with prn DuoNebs
Outpatient pulmonary office follow-up with Dr. Russell - last visit on 06/21/[address] chest in 4 to 6 weeks to follow-up resolution of RML consolidation; may need an inspection bronchoscopy sooner depending on patient's symptoms and outpatient evaluation
Patient is being prepared for discharge home today. No additional recommendations at this time. Pulmonary service will now sign off. Please reconsult if there are any additional questions/concerns, or if patient's respiratory status deteriorates.
Assessment
-
70-year-old non-smoking male with a history of asthma followed by Dr. Russell presented with increasing shortness of breath and a dry nonproductive cough found to have an abnormal chest [id number] consulted for shortness of breath, wheezing,
abnormal chest x-ray 07/11/2025.
Asthma-severe persistent with acute exacerbation
Abnormal chest x-ray-large dense airspace consolidation right middle lobe
PAF
Leukopenia
Eosinophilia-600
Mild hyperglycemia
Conditions present prior to admission:
Asthma-severe persistent-maintained on Symbicort and albuterol, follows Dr Russell.
Eosinophilia
Seasonal allergic rhinitis
PAF.
Sudden cardiac arrest status post successful resuscitation-04/2022.
Chronic rhinitis.
Ankle surgery. Left hip surgery. Right shoulder scope.-Workup for hypereosinophilic syndrome negative
Plan
Respiratory decompensation consistent with asthma exacerbation-no obvious infection noted is a trigger-was exposed to 'scented candles' and this may have assisted in the exacerbation
Office records were reviewed and radiographs, lower extremity ultrasound, CTs of the chest, echocardiogram, spirometry, and pulmonary function tests are summarized below
Supplemental oxygen as needed
DuoNebs
Budesonide nebulizers
Decadron 4 mg IV every 8 hours with transition to prednisone taper upon discharge
CT chest summarized below-Will need outpatient follow-up and consideration towards endobronchial inspection
Prior CTA chest from April 2022 showed bilateral bronchial wall thickening with no lesions seen in the RML at that time
Procalcitonin negative (<0.05)
Rocephin and doxycycline initiated to cover community-acquired sources-finite course-not convinced patient has active bacterial community-acquired pneumonia
DVT prophylaxis-on Eliquis
Nutrition
Early mobilization
Reviewed with nursing as well as primary team as well as at the bedside 07/11/2025
The patient last saw Dr. Russell 06/21/2025-maintained on Symbicort and albuterol-with significant recurrent eosinophilia consideration towards Biologics such as Nucala, Fasenra or Dupixent will be entertained
Patient is being prepared for discharge home today. No additional recommendations at this time. Pulmonary service will now sign off. Thank you for allowing us to be involved in the care of this patient. Please reconsult if there are any
additional questions/concerns, or if patient's respiratory status deteriorates.
Diagnostic data:
Chest x-ray 07/10/2025-large dense airspace consolidation right middle lobe, mild elevation left hemidiaphragm
Lower extremity ultrasound 07/10/2025-no evidence for DVT bilaterally
CT chest 07/11/2025-medial segment right middle lobe volume loss/atelectasis, cannot completely exclude endobronchial lesion and cannot exclude central or right hilar mass, few scattered intermediate 7 cm mediastinal lymph nodes
CT of the chest 07/09/21.negative for central pulmonary embolism. Mild bilateral nonspecific hilar lymphadenopathy. Few scattered bilateral peripheral tiny groundglass opacities are nonspecific. Findings could represent inflammatory infectious
process. Moderate bronchial wall thickening which could represent small airway disease such as bronchitis.
CT of the chest 05/14/22.no filling defects seen within the main pulmonary artery, right main pulmonary artery the left main pulmonary arteries to suggest pulmonary embolism. Remainder of pulmonary artery system bilaterally significantly limited by
beam hardening artifact from the patient's bilateral upper extremities as well as respiratory motion artifact.
Echo 05/15/22: Normal left ventricle size and systolic function. No regional wall motion abnormalities are seen. LVEF of 60-65%. Mild concentric left ventricular hypertrophy. Normal diastolic function. The aortic root is mildly dilated at 3.87 L and
ascending aorta. No significant change from previous.
Raghu with vol 06/21/25: FVC 3.78/70%, FEV1 2.29/58%, ratio 61.� TLC 7.25/89%.Compared to prior study, FEV1 has worsened
PFT 08/13/22: FVC 5.09/96%, FEV1 3.80/96%, ratio 75. TLC 7.73/97%, DLCO 28.92/92%. Normal
6 minute walk test 05/23/22. Room air saturation 96%, heart rate 76 bpm. Patient maintains 96-98% on room air. Heart rate increased to 88 bpm. Dyspnea index year at a 10. He ambulated 1500 feet
Total time spent today was 36 minutes for this encounter. Time includes reviewing laboratory test/imaging results, reviewing pertinent medical records, obtaining and reviewing medical history, performing an appropriate exam, ordering medications,
tests and procedures. Time also includes documentation of this encounter, coordinating patient care and communicating with other healthcare professionals. Total time does not include separately billed tests performed on this date of service.
Subjective Data
-
Date of Service:
Date of Service: July 12, 2025
Chief Complaint: Pulmonary Follow Up
Subjective:
Patient seen and evaluated today at bedside. On room air this morning, saturating 95%. No acute events reported overnight. Afebrile overnight. No chest pain, shortness of breath or fevers this morning. Being prepared for discharge home today.
Review of Systems
General: Other (Negative unless mentioned above)
Objective Data
Data Reviewed
Vital Signs / I&O / Oxygen:
Vital Signs
Temp Pulse Resp BP Pulse Ox
97.7 F 66 16 119/68 96
07/12/25 07:25 07/12/25 07:31 07/12/25 07:31 07/12/25 07:25 07/12/25 07:31
Intake and Output
07/11/25 07/12/25 07/13/25
06:59 06:59 06:59
Intake Total 2400 / 2400
Balance 2400 / 2400
SaO2 96
Nasal Cannula flow liters per 2
minute
Physical Exam
General: Respiratory Distress (n), Comfortable, Chills (n) and Sweats (n)
HEENT: Normocephalic and Anicteric
Cardiovascular: S1-S2 and Peripheral Edema (n)
Respiratory: Wheeze (Faintly heard upon expiration bilaterally), Crackles (n), Rhonchi (n), Non-Labored Respirations and Other (Mildly prolonged expiratory time)
GI: Soft, Non Distended, Non Tender and Normal Bowel Sounds
Neurology: Awake, Alert and Tremors (n)
Skin: Warm, Dry, Cyanosis (n) and Jaundice (n)
Labs/Micro/Reports
Lab Data
07/12/25 08:23
07/12/25 08:23
Microbiology
07/10/25 23:17 Blood/Venous Blood Culture - Preliminary
No Growth in 24 hours- Final report to follow
07/10/25 23:17 Blood/Venous Blood Culture - Preliminary
No Growth in 24 hours- Final report to follow
07/10/25 18:33 Nasal Swab Influenza Types A & B ([facility]) - Final
Negative for Influenza A & B, NAAT
Negative results must be combined with clinical observations
and patient history.
Nucleic Acid Amplification test (NAAT)performed on the
[employer] platform.
[2025-07-12 10:19] LABS: Potassium 3.9 mmol/L (3.5-5.1)
--- NOTE | 2025-07-12 10:57 | PTCARENOTE ---
Pt for dc today, home no needs.
--- NOTE | 2025-07-12 11:04 | W.PN.HOSP.TC ---
Today's Communication/Plan
-
Discharged home on prednisone tapering
Assessment / Plan
Assessment / Plan
Impression:
Patient is a 70 y/o male past medical history of asthma who presents with shortness of breath. Patient reports slight dry cough recently. Yesterday he attended a dinner libertarian where the host had set up various scented candles. During the dinner
libertarian patient reports his breathing got significantly worse. Upon returning home he took his usual Symbicort inhaler and he was able to sleep. However over the coarse of the day today his breathing continued to worsening prompting him to come to
the emergency department for evaluation. He denies fevers, sweats of chills. He denies chest pain or lower extremity edema. Patient reports following the nebulizer treatment his breathing is improving.
He noted to be in and out of atrial fibrillation.
Patient converted to sinus rhythm.
Chest X-ray shows:
1. Large dense airspace consolidation in the right middle lobe. Diagnostic possibilities are (1) SEVERE RIGHT MIDDLE LOBE PNEUMONIA or ATELECTASIS secondary to mucous plugging (probably most likely given acute onset of symptoms) or (2) right
middle lobe lung cancer (a consideration if symptoms are more chronic).
2. Mild airspace opacity in the basilar segments of the lower lobes.
3. Mild elevation of the left hemidiaphragm.
CT scan shows:
Medial segment right middle lobe volume loss/atelectasis, evaluation limited without intravenous contrast. Cannot exclude endobronchial lesion and cannot exclude central and/or right hilar mass.
Few scattered indeterminate subcentimeter mediastinal lymph nodes.
Subcentimeter low-attenuation right lobe hepatic lesion too small to characterize.
Pulmonology consulted.
Plan for follow-up as outpatient and consider bronchoscopy.
To be discharged on nebulizer treatment and prednisone taper.
Assessment/plan:
Acute Hypoxic Respiratory Insufficiency secondary to Acute Asthma Exacerbation
Continue supplemental oxygen
Current on room air
Acute Asthma Exacerbation
Consulted Pulmonary
Continue Pulmicort nebulizer in place of Symbicort
Continue DuoNeb QID and PRN
Chest X-ray shows:
1. Large dense airspace consolidation in the right middle lobe. Diagnostic possibilities are (1) SEVERE RIGHT MIDDLE LOBE PNEUMONIA or ATELECTASIS secondary to mucous plugging (probably most likely given acute onset of symptoms) or (2) right
middle lobe lung cancer (a consideration if symptoms are more chronic).
2. Mild airspace opacity in the basilar segments of the lower lobes.
3. Mild elevation of the left hemidiaphragm
Continue ceftriaxone and doxycycline
negative procalcitonin.
Unable to perform PE study due to severe IV dye allergy-will obtain CT chest without contrast
peripheral vascular ultrasound negative for DVT
Started on Eliquis for atrial fibrillation, seen by cardiology, low risk, will start baby aspirin.
Concern of endobronchial mass
CT scan shows:
Medial segment right middle lobe volume loss/atelectasis, evaluation limited without intravenous contrast. Cannot exclude endobronchial lesion and cannot exclude central and/or right hilar mass.
Few scattered indeterminate subcentimeter mediastinal lymph nodes.
Subcentimeter low-attenuation right lobe hepatic lesion too small to characterize.
Pulmonology consulted.
Plan for follow-up as outpatient and consider bronchoscopy.
Paroxysmal Atrial Fibrillation
Patient spontaneously converted to NSR in ED
Prior episode of A-Fib related to respiratory distress
Consulted Cardiology
Start Eliquis 5 mg BID for anticoagulation, low [id number] score , will be discharged on baby aspirin
Monitor on telemetry
CODE STATUS: Full code
DVT prophylaxis: Eliquis (dc'd)
Diet: Regular diet
Family communication: discussed with at bedside.
Disposition: Discharge home today
Total time spent on today's encounter was 55 minutes which included time spent in counseling the patient/family regarding diagnosis and treatment plan as listed above, goals of care, and symptom management. Case was discussed with nursing staff,
specialists, and care coordinators/case management. All labs and imaging personally reviewed by me. Remainder the time spent in detailed review of previous records, lab data, imaging, and other medical provider documentation.
Part of this note was created using voice recognition system. Occasional wrong word or �sound alike� substitutions may have inadvertently occurred due to the inherent limitations of voice recognition software. If noted kindly bring it to my
attention for correction.
Anticipated Discharge: Today
Subjective/Interval History
-
Date of Service: July 12, 2025
Patient seen and examined at bedside, denies any chest pain , wheezing and shortness of breath Improved, no abdominal pain, no nausea, no vomiting, no diarrhea or constipation.
Objective Data
-
Labs:
Laboratory Results
07/12/25
08:23
WBC 10.2
Hgb 13.8
Hct 39.6
Plt Count 177
Sodium 135
Potassium 3.9
Chloride 105
Carbon Dioxide 21 L
BUN 15
Creatinine 0.7
Glucose 128 H
Calcium 8.8
Vital Signs:
Vital Signs
Temp Pulse Resp BP Pulse Ox
97.7 F 71 16 119/68 95
07/12/25 07:25 07/12/25 10:43 07/12/25 10:43 07/12/25 07:25 07/12/25 10:43
I&O
07/11/25 07/12/25 07/13/25
06:59 06:59 06:59
Intake Total 2400 / 2400
Balance 2400 / 2400
Physical Exam
-
General: Well Developed, Well Nourished, No Apparent Distress and Comfortable
HEENT: Normocephalic, Atraumatic, Moist Mucous Membranes, No Ptosis, PERRLA and Nose Appears Normal
Respiratory: Wheezes, Rales and Non Labored Respirations
Cardiac: Regular Rhythm and S1/S2
Breast: Deferred by me
GI: Soft, Nontender, Nondistended and Normal Bowel Sounds
Genito-urinary: No Costovertebral Tender
Musculoskeletal: No Clubbing, No Cyanosis and No Edema
Skin: Warm
Neuro: Awake, Alert, Oriented, AO x 3 and No Motor Deficits
Psych: Calm
--- NOTE | 2025-07-12 11:11 | CM ---
CM reviewed chart, patient seen with , for d/c today.
Patient provided with Advance Directive.
IMM verbally reviewed, provided with copy, placed in chart.
CM will continue to follow for all d/c planning needs.
Plan; home no needs
--- NOTE | 2025-07-12 11:13 | W.DCSUMMARY ---
Discharge Summary
Discharge Data
Date of Admission: 07/10/25
Date of Discharge: 07/12/25
Total time spent discharging patient (in min): 40
-
Pending Results: No
Hospital Course
Hospital course
Patient is a 70 y/o male past medical history of asthma who presents with shortness of breath. Patient reports slight dry cough recently. Yesterday he attended a dinner democrat where the host had set up various scented candles. During the dinner
democrat patient reports his breathing got significantly worse. Upon returning home he took his usual Symbicort inhaler and he was able to sleep. However over the coarse of the day today his breathing continued to worsening prompting him to come to
the emergency department for evaluation. He denies fevers, sweats of chills. He denies chest pain or lower extremity edema. Patient reports following the nebulizer treatment his breathing is improving.
He noted to be in and out of atrial fibrillation.
Patient converted to sinus rhythm.
Chest X-ray shows:
1. Large dense airspace consolidation in the right middle lobe. Diagnostic possibilities are (1) SEVERE RIGHT MIDDLE LOBE PNEUMONIA or ATELECTASIS secondary to mucous plugging (probably most likely given acute onset of symptoms) or (2) right
middle lobe lung cancer (a consideration if symptoms are more chronic).
2. Mild airspace opacity in the basilar segments of the lower lobes.
3. Mild elevation of the left hemidiaphragm.
CT scan shows:
Medial segment right middle lobe volume loss/atelectasis, evaluation limited without intravenous contrast. Cannot exclude endobronchial lesion and cannot exclude central and/or right hilar mass.
Few scattered indeterminate subcentimeter mediastinal lymph nodes.
Subcentimeter low-attenuation right lobe hepatic lesion too small to characterize.
Pulmonology consulted.
Plan for follow-up as outpatient and consider bronchoscopy.
To be discharged on nebulizer treatment and prednisone taper.
During hospitalization patient was treated from the following
Acute Hypoxic Respiratory Insufficiency secondary to Acute Asthma Exacerbation
Continue supplemental oxygen
Current on room air
Acute Asthma Exacerbation
Consulted Pulmonary
Continue Pulmicort nebulizer in place of Symbicort
Continue DuoNeb QID and PRN
Chest X-ray shows:1. Large dense airspace consolidation in the right middle lobe. Diagnostic possibilities are (1) SEVERE RIGHT MIDDLE LOBE PNEUMONIA or ATELECTASIS secondary to mucous plugging (probably most likely given acute onset of symptoms)
or (2) right middle lobe lung cancer (a consideration if symptoms are more chronic).
2. Mild airspace opacity in the basilar segments of the lower lobes.
3. Mild elevation of the left hemidiaphragm
Continue ceftriaxone and doxycycline
negative procalcitonin.
Unable to perform PE study due to severe IV dye allergy-will obtain CT chest without contrast
peripheral vascular ultrasound negative for DVT
Started on Eliquis for atrial fibrillation, seen by cardiology, low risk, will start baby aspirin.
Concern of endobronchial mass
CT scan shows:
Medial segment right middle lobe volume loss/atelectasis, evaluation limited without intravenous contrast. Cannot exclude endobronchial lesion and cannot exclude central and/or right hilar mass.
Few scattered indeterminate subcentimeter mediastinal lymph nodes.
Subcentimeter low-attenuation right lobe hepatic lesion too small to characterize.
Pulmonology consulted.
Plan for follow-up as outpatient and consider bronchoscopy.
Paroxysmal Atrial Fibrillation
Patient spontaneously converted to NSR in ED
Prior episode of A-Fib related to respiratory distress
Consulted Cardiology
Start Eliquis 5 mg BID for anticoagulation, low [id number] score , will be discharged on baby aspirin
Monitor on telemetry
CODE STATUS: Full code
DVT prophylaxis: Eliquis (dc'd)
Diet: Regular diet
Family communication: discussed with at bedside.
Disposition: Discharge home today
Total time spent on today's encounter was 40 minutes which included time spent in counseling the patient/family regarding diagnosis and treatment plan as listed above, goals of care, and symptom management. Case was discussed with nursing staff,
specialists, and care coordinators/case management. All labs and imaging personally reviewed by me. Remainder the time spent in detailed review of previous records, lab data, imaging, and other medical provider documentation.
Anticipated Discharge: Today
Discharge Plan
-
Patient Disposition: Home (Routine Discharge)
Discharge Diagnosis/Procedures: Acute Asthma Exacerbation
Paroxysmal Atrial Fibrillation
Concern of endobronchial lesion
Diet: Regular
Activity: As tolerated
Referrals:
Natty Russell MD [Family Provider, Pulmonary Medicine]
Ranjan Shultz MD [Active, Cardiology] - 08/08/25 8:40 am
Referral Note: You have an appointment to see Dr. Shultz's physician curatorial assistant, Allison, at the [facility] on 08/08/2025 at 8:40 AM. Please call [phone] if you need to reschedule.
Additional Discharge Medication Instructions: start baby Aspirin, prednisone tapering for 12 days.
Prescriptions:
New
ipratropium-albuterol 0.5 mg-3 mg(2.5 mg base)/3 mL Solution For Nebulization
3 ml inhalation R QID 30 Days Qty: 180 0RF
(DME) nebulizers Misc
See Rx Instructions .Route Qty: 1 0RF
Rx Instructions:
As directed
aspirin 81 mg tablet
81 mg PO DAILY Qty: 30 0RF
prednisone 10 mg tablet
See Taper PO DAILY Qty: 30 0RF
Taper: Prednisone DC Starting at 40 mg daily
40 mg Daily for 3 Days and 0 Hour
30 mg Daily for 3 Days and 0 Hour
20 mg Daily for 3 Days and 0 Hour
10 mg Daily for 3 Days and 0 Hour
Rx Instructions:
10 mg orally
Continued
albuterol sulfate 90 mcg/actuation HFA aerosol inhaler
1 puff INHALATION Q4HPRN PRN (Reason: shortness of breath)
budesonide-formoterol [Symbicort] 160-4.5 mcg/actuation Hfa Aerosol Inhaler
1 puff INHALATION HS
Discharge Orders:
Discharge Patient (As Directed); Ordered 07/12/25
Ordered By: Alva Joya
Discharge Date and Time
Print Language: MACANESE
[2025-07-12 11:51] VITALS: BP 131/73
--- NOTE | 2025-07-12 12:30 | PTCARENOTE ---
Pt dc'd to home, iv and tele removed. Pt paperwork reviewed, copy provided. Pt home with via her vehicle without issue.
== END 2025-07-12 11:58 | disposition home or self-care (01) | DRG 202 ==
LOC: 4 WEST ACU 23:32
PROVIDERS: Emergency Medicine; Physician Assistant Medical; ADMITTING PHYSICIAN Internal Medicine; ATTENDING PHYSICIAN General Practice; EMERGENCY PHYSICIAN Emergency Medicine; FAMILY PHYSICIAN Internal Medicine Critical Care Medicine; OTHER PHYSICIAN Internal Medicine Critical Care Medicine; OTHER PHYSICIAN Nuclear Medicine Nuclear Cardiology
DX: J45.51 Severe persistent asthma with (acute) exacerbation (principal); J18.9 Pneumonia, unspecified organism; I48.0 Paroxysmal atrial fibrillation; Z11.52 Encounter for screening for COVID-19; R09.02 Hypoxemia; R06.89 Other abnormalities of breathing; K76.9 Liver disease, unspecified; Z79.01 Long term (current) use of anticoagulants; Z79.899 Other long term (current) drug therapy
CPT/HCPCS: 71046; 71250; 80048; 80053; 84145; 85025; 85027; 87040; 87502; 87811; 93005; 93306; 93970; 94640; 96374; 99285